=== PATIENT | male | born 1990 | race African-American/Black ===

== ENCOUNTER 2021-10-12 17:22 | Emergency (ER) | payer OTHER ==
[~2021-10-12] VITALS: Ht 187.9 cm; Wt 122.4 kg
[2021-10-12] MEDS ORDERED: NS IV 1000 ML 1,000 ML IV STA ×2 (17:40→20:53)
[2021-10-12] MEDS ORDERED: ONDANSETRON 4 MG/2 ML (SDV) Z0FRAN IVP STA ×2 (17:40→19:21)
[2021-10-12] MEDS ORDERED: PANTOPRAZOLE 40 MG (PROTONIX) VIAL IV STA (17:40)
[2021-10-12] MEDS ORDERED: KETOROLAC 30 MG/ML VIAL IVP STA (17:40)
[2021-10-12 17:45] LABS: BASOPHILS # (AUTO) 0.2 10^3/uL (0.0-0.1); BASOPHILS % (AUTO) 2 % (0-10); EOSINOPHILS # (AUTO) 0.2 10^3/uL (0.0-0.3); EOSINOPHILS % (AUTO) 3 % (0-10); HEMATOCRIT 46 % (40-54); HEMOGLOBIN 15.5 g/dL (13.3-17.7); LYMPHOCYTES # (AUTO) 4.6 10^3/uL (1.0-4.0); LYMPHOCYTES % (AUTO) 54 % (12-44); MEAN CORPUSCULAR HEMOGLOBIN 28 pg (25-34); MEAN CORPUSCULAR HGB CONC 34 g/dL (32-36); MEAN CORPUSCULAR VOLUME 84 fL (80-99); MEAN PLATELET VOLUME 9.5 fL (9.0-12.2); MONOCYTES # (AUTO) 0.5 10^3/uL (0.0-1.0); MONOCYTES % (AUTO) 6 % (0-12); NEUTROPHILS % (AUTO) 35 % (42-75); PLATELET COUNT 217 10^3/uL (130-400); WHITE BLOOD COUNT 8.6 10^3/uL (4.3-11.0)
--- NOTE | 2021-10-12 17:48 | ED General ---
General Chief Complaint: Abdominal/GI Problems Stated Complaint: DARK URINE,FATIGUE,N/V,ABD PAIN Source of Information: Patient History of Present Illness Date Seen by Provider: Oct 12, 2021 Time Seen by Provider: 17:28 Initial Comments 31-year-old male presenting with complaints of abdominal pain with nausea, vomiting, dark-colored urine. He states that this started this last weekend during the high school reunion. He had been drinking some alcohol and walking around town when it was hot. He thought that initially he was just dehydrated however his symptoms have persisted for over 4 days now. He has felt like he was running a fever but has not taken his temperature. He denies any diarrhea but states that his bowel movements have been small compared to usual. He denies any pain or burning with urination but has noticed that his urine is very dark-colored. He has not taken anything for pain or nausea today. Timing/Duration: 4-5 Days Severity: Moderate Modifying Factors: worse with Eating Associated Systoms: No Chest Pain, No Cough, No Diaphoresis; Fever/Chills (Subjective); No Headaches; Malaise, Nausea/Vomiting; No Rash, No Seizure, No Shortness of Air, No Syncope, No Weakness Allergies and Home Medications Allergies Coded Allergies: No Known Drug Allergies (Unverified , 10/12/21) Patient Home Medication List Home Medication List Reviewed: Yes Review of Systems Review of Systems Constitutional: see HPI EENTM: no symptoms reported Respiratory: No cough Cardiovascular: No chest pain Gastrointestinal: see HPI; No diarrhea Genitourinary: No dysuria; other (Dark-colored urine) Musculoskeletal: no symptoms reported Skin: No rash Psychiatric/Neurological: No Symptoms Reported Hematologic/Lymphatic: Denies Blood Clots Past Nehkbmx-Bxtbrk-Cescgs Hx Patient Social History Substance use?: Yes Substance type: Marijuana Alcohol Use?: Yes Past Medical History Surgeries: No Physical Exam Vital Signs Vital Signs - First Documented 10/12/21 17:39 Temp 36.0 Pulse 77 Resp 18 B/P (MAP) 138/92 (107) Pulse Ox 98 O2 Delivery Room Air Capillary Refill : Height, Weight, BMI Height: '" Weight: lbs. oz. kg; BMI Method: General Appearance: No Apparent Distress, WD/WN HEENT: PERRL/EOMI, Pharynx Normal, Moist Mucous Membranes Neck: Full Range of Motion, Normal Inspection, Non Tender, Supple Respiratory: Chest Non Tender, Lungs Clear, Normal Breath Sounds, No Accessory Muscle Use, No Respiratory Distress Cardiovascular: Regular Rate, Rhythm, Normal Peripheral Pulses Gastrointestinal: Normal Bowel Sounds, No Pulsatile Mass, Soft; No Distended, No Guarding, No Rebound; Tenderness (States he does not have pain with palpation but it makes it more uncomfortable with palpation of his abdomen) Rectal: Deferred Extremity: Normal Capillary Refill, Normal Inspection, No Pedal Edema Neurologic/Psychiatric: Alert, 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, 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 Skin: Normal Color, Warm/Dry Progress/Results/Core Measures Suspected Sepsis SIRS Temperature: Pulse: Respiratory Rate: Laboratory Tests 10/12/21 17:30: White Blood Count 8.6 Blood Pressure / Mean: Laboratory Tests 10/12/21 17:30: Creatinine 1.10, Platelet Count 217, Total Bilirubin 4.4H Results/Orders Lab Results Laboratory Tests Test 10/12/21 17:30 10/12/21 17:40 10/12/21 19:30 10/12/21 20:38 Range/Units White Blood Count 8.6 4.3-11.0 10^3/uL Red Blood Count 5.48 4.30-5.52 10^6/uL Hemoglobin 15.5 13.3-17.7 g/dL Hematocrit 46 40-54 % Mean Corpuscular Volume 84 80-99 fL Mean Corpuscular Hemoglobin 28 25-34 pg Mean Corpuscular Hemoglobin Concent 34 32-36 g/dL Red Cell Distribution Width 13.3 10.0-14.5 % Platelet Count 217 130-400 10^3/uL Mean Platelet Volume 9.5 9.0-12.2 fL Immature Granulocyte % (Auto) 0 % Neutrophils (%) (Auto) 35 L 42-75 % Lymphocytes (%) (Auto) 54 H 12-44 % Monocytes (%) (Auto) 6 0-12 % Eosinophils (%) (Auto) 3 0-10 % Basophils (%) (Auto) 2 0-10 % Neutrophils # (Auto) 3.0 1.8-7.8 10^3/uL Lymphocytes # (Auto) 4.6 H 1.0-4.0 10^3/uL Monocytes # (Auto) 0.5 0.0-1.0 10^3/uL Eosinophils # (Auto) 0.2 0.0-0.3 10^3/uL Basophils # (Auto) 0.2 H 0.0-0.1 10^3/uL Immature Granulocyte # (Auto) 0.0 0.0-0.1 10^3/uL Neutrophils % (Manual) 35 % Lymphocytes % (Manual) 42 % Monocytes % (Manual) 7 % Eosinophils % (Manual) 2 % Basophils % (Manual) 0 % Band Neutrophils 5 % Atypical Lymphocytes 8 % Blast Cells 2 % Sodium Level 138 135-145 MMOL/L Potassium Level 4.1 3.6-5.0 MMOL/L Chloride Level 96 L 98-107 MMOL/L Carbon Dioxide Level 27 21-32 MMOL/L Anion Gap 15 H 5-14 MMOL/L Blood Urea Nitrogen 10 7-18 MG/DL Creatinine 1.10 0.60-1.30 MG/DL Estimat Glomerular Filtration Rate 92 BUN/Creatinine Ratio 9 Glucose Level 95 70-105 MG/DL Calcium Level 9.6 8.5-10.1 MG/DL Corrected Calcium 9.3 8.5-10.1 MG/DL Magnesium Level 2.1 1.6-2.4 MG/DL Total Bilirubin 4.4 H 0.1-1.0 MG/DL Aspartate Amino Transf (AST/SGOT) 1533 H 5-34 U/L Alanine Aminotransferase (ALT/SGPT) 2962 H 0-55 U/L Alkaline Phosphatase 173 H 40-136 U/L Total Protein 8.6 H 6.4-8.2 GM/DL Albumin 4.4 3.2-4.5 GM/DL Lipase 52 8-78 U/L Acetaminophen Level < 10 L 10-30 UG/ML Serum Alcohol < 10 <10 MG/DL Urine Color TESHA H Urine Clarity CLEAR Urine pH 8.5 5-9 Urine Specific Blanchard 1.015 L 1.016-1.022 Urine Protein TRACE H NEGATIVE Urine Glucose (UA) TRACE H NEGATIVE Urine Ketones 2+ H NEGATIVE Urine Nitrite NEGATIVE NEGATIVE Urine Bilirubin 2+ H NEGATIVE Urine Urobilinogen 4.0 < = 1.0 MG/DL Urine Leukocyte Esterase NEGATIVE NEGATIVE Urine RBC (Auto) NEGATIVE NEGATIVE Urine RBC NONE /HPF Urine WBC 0-2 /HPF Urine Squamous Epithelial Cells 0-2 /HPF Urine Crystals NONE /LPF Urine Bacteria TRACE /HPF Urine Casts NONE /LPF Urine Mucus NEGATIVE /LPF Urine Culture Indicated NO Urine Opiates Screen NEGATIVE NEGATIVE Urine Oxycodone Screen NEGATIVE NEGATIVE Urine Methadone Screen NEGATIVE NEGATIVE Urine Propoxyphene Screen NEGATIVE NEGATIVE Urine Barbiturates Screen NEGATIVE NEGATIVE Ur Tricyclic Antidepressants Screen NEGATIVE NEGATIVE Urine Phencyclidine Screen NEGATIVE NEGATIVE Urine Amphetamines Screen NEGATIVE NEGATIVE Urine Methamphetamines Screen NEGATIVE NEGATIVE Urine Benzodiazepines Screen NEGATIVE NEGATIVE Urine Cocaine Screen NEGATIVE NEGATIVE Urine Cannabinoids Screen POSITIVE H NEGATIVE SARS-CoV-2 RNA (RT-PCR) Not Detected Not Detecte My Orders Orders - SEBASTIAN WILDE MD Comprehensive Metabolic Panel (10/12/21 17:31) Lipase (10/12/21 17:31) Ua Culture If Indicated (10/12/21 17:31) Ed Iv/Invasive Line Start (10/12/21 17:31) Cbc With Automated Diff (10/12/21 17:31) Drug Screen Stat (Urine) (10/12/21 17:31) Alcohol (10/12/21 17:31) Magnesium (10/12/21 17:31) Ondansetron Injection (Zofran Injectio (10/12/21 17:40) Pantoprazole Injection (Protonix Injecti (10/12/21 17:40) Ketorolac Injection (Toradol Injection) (10/12/21 17:40) Ns Iv 1000 Ml (Sodium Chloride 0.9%) (10/12/21 17:40) Ketorolac Injection (Toradol Injection) (10/12/21 17:56) Ns Iv 1000 Ml (Sodium Chloride 0.9%) (10/12/21 18:02) Manual Differential (10/12/21 17:30) Ondansetron Injection (Zofran Injectio (10/12/21 19:21) Ct Abdomen/Pelvis W (10/12/21 19:21) Hepatitis Panel Acute (10/12/21 19:26) Iohexol Injection (Omnipaque 350 Mg/Ml 1 (10/12/21 19:45) Received Contrast (Hold Metformin- Contr (10/12/21 19:45) Ns (Ivpb) (Sodium Chloride 0.9% Ivpb Bag (10/12/21 19:45) Sodium Chloride Flush (Catheter Flush Sy (10/12/21 19:45) Covid 19 Inhouse Test (10/12/21 20:34) Acetaminophen (10/12/21 20:45) Ns Iv 1000 Ml (Sodium Chloride 0.9%) (10/12/21 20:53) Fentanyl Inj (Sublimaze Injection) (10/12/21 21:02) Metoclopramide Injection (Reglan Injecti (10/12/21 21:02) Diphenhydramine Injection (Benadryl Inje (10/12/21 21:02) Medications Given in ED Current Medications Medications Dose Ordered Sig/Miguel Route Start Time Stop Time Status Last Admin Dose Admin Iohexol 100 ml ONCE ONCE IV 10/12/21 19:45 10/12/21 21:26 DC 10/12/21 19:47 100 ML Sodium Chloride 10 ml NEEDED PRN IV 10/12/21 19:45 10/12/21 21:42 DC 10/12/21 19:47 10 ML Sodium Chloride 100 ml ONCE ONCE IV 10/12/21 19:45 10/12/21 21:26 DC 10/12/21 19:46 80 ML Vital Signs/I&O 10/12/21 10/12/21 17:39 21:40 Temp 36.0 36.7 Pulse 77 77 Resp 18 20 B/P (MAP) 138/92 (107) 134/80 Pulse Ox 98 100 O2 Delivery Room Air Room Air Capillary Refill : Progress Note #1: Progress Note Check basic labs as well as urinalysis. Evaluate for pancreatitis versus cholecystitis versus colitis versus diverticulitis versus pyelonephritis versus substance abuse. Give IV fluids normal saline 1 L IV fluid bolus for hydration, Zofran 4 mg IV for nausea, Toradol 30 mg IV for vague abdominal discomfort, Protonix 40 mg IV for gastritis. Discussed option of CT scan if he has abnormal labs. Progress Note #2: Progress Note Labs came back with a normal white blood cell count but he did have elevated lymphocytes on his differential. His chemistry panel appeared stable without acute significant normality on his electrolytes or renal function however his liver enzymes were greatly elevated. His total bilirubin was 4.4 with a AST of 1533 and ALT of 2962. He had bilirubin and ketones in his urinalysis. We will add on a CT scan to look for signs of obstruction or blockage with his liver. However with him having such greatly elevated liver enzymes he would likely need to be admitted to the hospital that would have GI access to help evaluate his liver and condition. Progress Note #3: Progress Note CT scan shows fatty infiltrate of the liver but no signs of acute cholecystitis or obstruction. There is no acute pancreatitis. His lipase was normal at 52. When discussed with the patient and significant other they were in agreement about transfer to a facility that would have GI available if he needed further work-up for evaluation and treatment of his elevated liver enzymes. That would not be available locally at [place] where he has his primary care provider or in [place] at the hospital associated with this ED. Will contact [facility] and [facility] transfer center about possible transfer. [address] Joshi, resident physician on-call for [facility]. She accepted pt on behalf of Dr. Grove but did request Acetaminophen level be added to labs. Covid swab pending as well for the transfer to ensure that he did not need isolation. Hepatitis panel is pending as well. Updated patient about plan he stated he was still feeling a little nauseated and having some pain and discomfort in his belly so we will try dose of fentanyl along with Reglan and Benadryl to see if that might help with his symptoms while waiting on bed assignment. We will also start him on maintenance IV fluids of normal saline 125 mL/hr for hydration and to limit PO intake until he is evaluated at [facility]. Diagnostic Imaging Diagonstic Imaging: CT Plain Films/CT/US/NM/MRI: abdomen, pelvis Comments NAME: TRIPP [facility] REC#: [id number] PT STATUS: REG ER : 1990 PHYSICIAN: SEBASTIAN WILDE MD ADMIT DATE: 10/12/21/ER FS Draft Date of Exam:10/12/21 CT ABDOMEN/PELVIS W INDICATION: Elevated LFTs, nausea and vomiting. TECHNIQUE: Multiple contiguous axial images were obtained through the abdomen and pelvis after administration of intravenous contrast. Auto Exposure Controls were utilized during the CT exam to meet ALARA standards for radiation dose reduction. All CT scans use one or more of the following dose optimizing techniques: automated exposure control, MA and/or KvP adjustment based on patient size and exam type or iterative reconstruction. COMPARISON: There is no prior study for comparison. FINDINGS: Visualized portions of the lung bases are clear. There is no pleural fluid collection. There is no free intraperitoneal air. The liver shows diffuse low-density change compatible with fatty infiltration. There is no focal liver lesion seen. Gallbladder is contracted. Spleen, pancreas and adrenals appear normal. Kidneys, bilaterally, are unremarkable. There is no retroperitoneal mass or adenopathy. There is no ascites or abnormal fluid collection. Visualized bowel loops appear unremarkable including the appendix. There is no pelvic mass or free fluid. IMPRESSION: Findings compatible with fatty infiltration of the liver, without focal lesion. Contracted gallbladder. No other abnormal finding. Dictated on workstation # [id number] Dict: 10/12/211955 Trans: 10/12/212001 PJE [id number] Interpreted by: TEREZA ABAD MD Electronically signed by: Reviewed: Reviewed by Me Departure Impression Primary Impression: Acute hepatitis Additional Impressions: Nausea and vomiting Qualified Codes: R11.14 - Bilious vomiting Dark urine Elevated liver enzymes Disposition: XF [facility] HOSP Condition: Stable Transfer Transfer Reason: Exceeds level of care (Requires gastroenterology or hepatology which is not available locally) Time Spoke to Accepting Phy: 20:42 Transfer Progress Notes d/w Dr. Lema, resident physician for Dr. Grove. She accepted the patient to come to [facility] and requested Acetaminophen level be added. Hepatitis panel is running and the Covid swab is running. Transfer Facility: [facility] Method of Transfer: EMS Departure-Patient Inst. Referrals: PARKER MELENDEZ MD (PCP/Family) Primary Care Physician SEBASTIAN WILDE MD Oct 12, 2021 17:48
[2021-10-12 17:49] LABS: CLARITY,URINE CLEAR; GLUCOSE, URINE (UA) TRACE (NEGATIVE); KETONES,URINE 2+ (NEGATIVE); LEUKOCYTE ESTERASE ,URINE NEGATIVE (NEGATIVE); NITRITE,URINE NEGATIVE (NEGATIVE); PH,URINE 8.5 (5-9); PROTEIN,URINE TRACE (NEGATIVE)
[2021-10-12] MEDS ORDERED: KETOROLAC 30 MG/ML VIAL ONE (17:56)
[2021-10-12] MEDS ORDERED: NS IV 1000 ML 1,000 ML ONE (18:02)
[2021-10-12 18:05] LABS: BILIRUBIN,URINE 2+ (NEGATIVE); COLOR,URINE AMBER
[2021-10-12 18:06] LABS: BACTERIA,URINE TRACE /HPF; SQUAMOUS EPITHELIAL CELL,UR 0-2 /HPF; WBC,URINE 0-2 /HPF
[2021-10-12 18:07] LABS: AMPHETAMINE SCREEN, URINE NEGATIVE (NEGATIVE); BARBITURATE SCREEN URINE NEGATIVE (NEGATIVE); BENZODIAZEPINES SCREEN URINE NEGATIVE (NEGATIVE); CANNABINOID SCREEN, URINE POSITIVE (NEGATIVE); COCAINE SCREEN URINE NEGATIVE (NEGATIVE); METHADONE STAT NEGATIVE (NEGATIVE); OPIATE SCREEN URINE NEGATIVE (NEGATIVE); OXYCODONE STAT NEGATIVE (NEGATIVE); PROPOXYPHENE STAT NEGATIVE (NEGATIVE); TRICYCLIC ANTIDEPRESSANTS SCRE NEGATIVE (NEGATIVE)
[2021-10-12 18:24] LABS: BILIRUBIN,TOTAL 4.4 MG/DL (0.1-1.0); BUN/CREATININE RATIO 9; CALCIUM 9.6 MG/DL (8.5-10.1); CARBON DIOXIDE 27 MMOL/L (21-32); CHLORIDE 96 MMOL/L (98-107); GFR ESTIMATED 92; GLUCOSE 95 MG/DL (70-105); MAGNESIUM 2.1 MG/DL (1.6-2.4); POTASSIUM 4.1 MMOL/L (3.6-5.0); SODIUM 138 MMOL/L (135-145)
[2021-10-12 18:25] LABS: ALANINE AMINOTRANSFERASE 2962 U/L (0-55); ALBUMIN 4.4 GM/DL (3.2-4.5); ALKALINE PHOSPHATASE 173 U/L (40-136); LIPASE 52 U/L (8-78); TOTAL PROTEIN 8.6 GM/DL (6.4-8.2)
[2021-10-12 18:26] LABS: ATYPICAL LYMPHOCYTES 8 %; BAND NEUTROPHILS 5 %; BASOPHILS % (MANUAL) 0 %; BLAST CELLS 2 %; EOSINOPHILS % (MANUAL) 2 %; LYMPHOCYTES % (MANUAL) 42 %; MONOCYTES % (MANUAL) 7 %; NEUTROPHILS % (MANUAL) 35 %
[2021-10-12] MEDS ORDERED: HOLD METFORMIN - RECEIVED CONTRAST 20 ML VIAL IV SCH (19:45)
[2021-10-12] MEDS ORDERED: NS 100 ML (IVPB) BAG IV ONE (19:45)
[2021-10-12] MEDS ORDERED: CATHETER FLUSH 10 ML SYR IV PRN (19:45)
[2021-10-12] MEDS ORDERED: IOHEXOL 350 MG/ML 100 ML (OMNIPAQUE 350) VIAL IV ONE (19:45)
--- NOTE | 2021-10-12 20:03 | Diagnostic Imaging Report ---
INDICATION: Elevated LFTs, nausea and vomiting. TECHNIQUE: Multiple contiguous axial images were obtained through the abdomen and pelvis after administration of intravenous contrast. Auto Exposure Controls were utilized during the CT exam to meet ALARA standards for radiation dose reduction. All CT scans use one or more of the following dose optimizing techniques: automated exposure control, MA and/or KvP adjustment based on patient size and exam type or iterative reconstruction. COMPARISON: There is no prior study for comparison. FINDINGS: Visualized portions of the lung bases are clear. There is no pleural fluid collection. There is no free intraperitoneal air. The liver shows diffuse low-density change compatible with fatty infiltration. There is no focal liver lesion seen. Gallbladder is contracted. Spleen, pancreas and adrenals appear normal. Kidneys, bilaterally, are unremarkable. There is no retroperitoneal mass or adenopathy. There is no ascites or abnormal fluid collection. Visualized bowel loops appear unremarkable including the appendix. There is no pelvic mass or free fluid. IMPRESSION: Findings compatible with fatty infiltration of the liver, without focal lesion. Contracted gallbladder. No other abnormal finding. Dictated by: Dictated on workstation # [id number]
[2021-10-12] MEDS ORDERED: fentaNYL INJ 100 MCG/2 ML AMP IVP STA (21:02)
[2021-10-12] MEDS ORDERED: diphenhydrAMINE 50 MG/ML INJ (BENADRYL) IVP STA (21:02)
[2021-10-12] MEDS ORDERED: METOCLOPRAMIDE INJ 10 MG/2 ML (REGLAN) IVP STA (21:02)
[2021-10-12 21:40] VITALS: BP 134/80
[2021-10-13 22:36] LABS: HEPATITIS C ANTIBODY C Non-Reactive (Non-Reactive)
== END 2021-10-12 21:42 | disposition short-term general hospital (02) ==
LOC: ER FS 17:26
DX: B17.9 Acute viral hepatitis, unspecified (principal); D72.820 Lymphocytosis (symptomatic); Z20.822 Contact with and (suspected) exposure to COVID-19
CPT/HCPCS: 36415; 74177; 80053; 80074; 80306; 81000; 83690; 83735; 85007; 85027; 87636; 96374; 96375; 96376; 99284; G0480 ×2; 80320; 80329; Q9967